=== PATIENT | male | born 1990 | race Caucasian/White ===

== ENCOUNTER 2017-08-15 13:35 | Inpatient (IN) | payer OTHER ==
[2017-08-15 13:44] VITALS: BMI 32.8
[2017-08-15] MEDS ORDERED: morphine CARPU-JECT 4 MG/1 ML DISP.SYRIN IVPUSH ONE ×2 (13:51→16:38)
[2017-08-15] MEDS ORDERED: SODIUM CHLORIDE 1,000 ML IV STA ×2 (13:51→17:52)
[2017-08-15] MEDS ORDERED: ONDANSETRON 4 MG/2 ML VIAL IVPB ONE (13:51)
[2017-08-15] MEDS ORDERED: ONDANSETRON 4 MG/2 ML VIAL ONE (13:54)
[2017-08-15] MEDS ORDERED: morphine CARPU-JECT 4 MG/1 ML DISP.SYRIN ONE ×2 (13:54→16:38)
--- NOTE | 2017-08-15 14:12 | PDOC ---
History of Present Illness - General Chief Complaint: Pain Stated Complaint: ABDOMINAL PAIN Time Seen by Provider: 08/15/17 13:39 - History of Present Illness Initial Comments: 08/15/17 14:08 27 M with h/o testicular torsion presents with 1 day of RLQ pain. Pt states that the pain began in the umbilical region before migrating to his RLQ. He denies F/C. Denies N/V. Denies diarrhea/constipation. Denies scrotal pain. He does not recall what side his torsion was on. Pt has no other surgical history. Past History - Past Medical History Allergies/Adverse Reactions: Allergies Allergy/AdvReac Type Severity Reaction Status Date / Time No Known Allergies Allergy Verified 08/15/17 13:38 Home Medications: Ambulatory Orders NK [No Known Home Medication] 08/15/17 - Suicide/Smoking/Psychosocial Hx Smoking History: Never smoked Hx Alcohol Use: No Drug/Substance Use Hx: No Substance Use Type: None Review of Systems - Review of Systems Comments:: 08/15/17 14:09 "GENERAL/CONSTITUTIONAL: No fever or chills. No weakness. HEAD, EYES, EARS, NOSE AND THROAT: No change in vision. No ear pain or discharge. No sore throat. CARDIOVASCULAR: No chest pain or shortness of breath. RESPIRATORY: No cough, wheezing, or hemoptysis. GASTROINTESTINAL: +abdominal pain GENITOURINARY: No dysuria, frequency, or change in urination. MUSCULOSKELETAL: No joint or muscle swelling or pain. No neck or back pain. SKIN: No rash NEUROLOGIC: No headache, vertigo, loss of consciousness, or change in strength/ sensation. ENDOCRINE: No increased thirst. No abnormal weight change. HEMATOLOGIC/LYMPHATIC: No anemia, easy bleeding, or history of blood clots. ALLERGIC/IMMUNOLOGIC: No hives or skin allergy. " *Physical Exam - Vital Signs Last Vital Signs Temp Pulse Resp BP Pulse Ox 99.0 F 88 15 132/84 98 08/15/17 13:38 08/15/17 13:38 08/15/17 13:38 08/15/17 13:38 08/15/17 13:38 - Physical Exam Comments: 08/15/17 14:10 "GENERAL: Awake, alert, and fully oriented, in no acute distress HEAD: No signs of trauma EYES: PERRLA, EOMI, sclera anicteric, conjunctiva clear ENT: Auricles normal inspection, hearing grossly normal, nares patent, oropharynx clear without exudates. Moist mucosa NECK: Nontender, no stepoffs, Normal ROM, supple, no lymphadenopathy, JVD, or masses LUNGS: Breath sounds equal, clear to auscultation bilaterally. No wheezes, and no crackles HEART: Regular rate and rhythm, normal S1 and S2, no murmurs, rubs or gallops ABDOMEN: + RLQ tenderness, with guarding, no rebound. Negative Rovsing's : Normal scrotal lay, normal cremasteric reflex, no tenderness, no masses EXTREMITIES: Normal range of motion, no edema. No clubbing or cyanosis. No cords, erythema, or tenderness NEUROLOGICAL: Cranial nerves II through XII intact. 5/5 strength and sensation in all extremities, Normal speech, normal gait SKIN: Warm, Dry, normal turgor, no rashes or lesions noted. " ED Treatment Course - LABORATORY CBC & Chemistry Diagram: 08/15/17 14:00 08/15/17 14:00 - RADIOLOGY Radiology Studies Ordered: Category Date Time Status ABDOMEN & PELVIS CT WITH CONTR [CT] Stat CT Scan 08/15/17 13:50 Ordered SCROTUM AND CONTENTS US [US] Stat Ultrasound 08/15/17 13:51 Ordered Medical Decision Making - Medical Decision Making 08/15/17 14:11 27 M with 1 day of RLQ pain. Concerning for acute appy. Will also r/o testicular torsion given h/o torsion. However, exam unconcerning for this. - Labs, UA - CTAP - Scrotal US 08/15/17 17:20 Imaging [employer] report shows acute appendicitis without abscess, cannot r/o perf. Unasyn 3gm IV ordered. Page sent out to on-call surgeon. 08/15/17 17:[address] Nails, surgeon drug abuse resistance education officer, who will review images and call back. 08/15/17 17:51 Dr. Nails has accepted pt as satellite admission. Pt to be transferred to [facility]. *DC/Admit/Observation/Transfer Diagnosis at time of Disposition: Acute appendicitis - Discharge Dispostion Condition at time of disposition: Good Admit: Yes - Attestations Physician Attestion: 08/15/17 17:54 I, Dr. Hill Gibbs MD, attest that this document has been prepared under my direction and personally reviewed by me in its entirety. I further attest, that it accurately reflects all work, treatment, procedures and medical decision -making performed by me.
[2017-08-15 14:23] LABS: PH,URINE 7.5 (4.5-8); URINE APPEARANCE Clear; URINE BILIRUBIN Negative (NEGATIVE); URINE BLOOD Negative (NEGATIVE); URINE COLOR YELLOW; URINE GLUCOSE (UA) Negative (NEGATIVE); URINE KETONE Negative (NEGATIVE); URINE LEUK ESTERASE Negative (NEGATIVE); URINE NITRITE Negative (NEGATIVE); URINE PROTEIN Negative (NEGATIVE); URINE UROBILINOGEN 0.2 (0.2-1.0)
[2017-08-15 14:25] LABS: BASOPHIL 1.8 % (0-2.0); EOSINOPHIL 0.6 % (0-4.5); MCH 28.9 pg (25.7-33.7); MCHC 34.4 g/dl (32.0-35.9); MEAN CELL VOLUME 83.8 fl (80-96); MEAN PLT VOLUME 7.3 fl (7.5-11.1); NEUTROPHILS 70.9 % (42.8-82.8); PLATELET COUNT 224 K/MM3 (134-434); RDW 12.4 % (11.9-15.9); WHITE BLOOD COUNT 8.6 K/mm3 (4.0-10.8)
[2017-08-15 14:43] LABS: ACTIVATED PTT 30.3 SECONDS (24.0-38.9)
[2017-08-15 14:45] LABS: ALBUMIN 4.5 g/dl (3.5-5.0); ALK PHOS 106 U/L (32-92); ANION GAP 10 (8-16); BILIRUBIN,TOTAL 1.3 mg/dl (0.2-1.0); CALCIUM 9.8 mg/dl (8.4-10.2); CO2 28 mmol/L (22-28); GLUCOSE,RANDOM 86 mg/dl (74-106); SGOT/AST 32 U/L (10-42); SGPT/ALT 32 U/L (10-40)
[2017-08-15 14:48] LABS: INR 1.09 (0.82-1.09); PROTHROMBIN TIME (PATIENT) 12.2 SEC (10.2-13.0)
[2017-08-15] MEDS ORDERED: AMPICILLIN NA/SULBACTAM NA 3 GM in SODIUM CHLORIDE 100 ML IVPB ONE (17:30)
[2017-08-15] MEDS ORDERED: AMPICILLIN NA/SULBACTAM NA 3 GM VIAL ONE (17:33)
[2017-08-15] MEDS ORDERED: SODIUM CHLORIDE 1,000 ML IV SCH (18:00)
[2017-08-15] MEDS ORDERED: LACTATED RINGERS SOLUTION 1,000 ML IV SCH ×2 (20:30→21:00)
--- NOTE | 2017-08-15 20:33 | HP ---
Admitting History and Physical - Primary Care Physician PCP: Nichole Nobles - Admission Chief Complaint: RLQ pain History of Present Illness: 27yo healthy M with h/o operation at 13 for testicular torsion, has been experiencing vague abdominal discomfort for a couple of weeks. Saw his PMD a week ago , who checked his urine, but did not find infection, and advised followup with his urologist, scheduled for next week. A week ago Wednesday, he then had chills and a brief fever, with a loose stool, which resolved on its own. He has not had much of an appetite for over a week. Did not have kev abdominal pain, though yesterday at work (3p - 2am), he felt gassy and had only bread to eat at 11pm. Had not been hungry for lunch, though did have a sandwich before work. After getting home, he began having lower/ central abdominal pain around 3:30 am and had trouble sleeping because he could not lay on his side. Tried some chewable Pepto-Bismol, but it did not help. Slept from about 5-9am, but had RLQ pain when he got up. Had a mushy stool this morning but no kev diarrhea, no n/v, no f/c. Came to ER around 1pm. Last po was some water just before. In ER, he had temp 99 and 99.7, wbc 8.6, couple of LFTs slightly up and H/H 16.7 /48.5, UA negative. CT showed enlarged appendix to almost 2cm, with surrounding inflammation of cecum and terminal ileum, perforation not excluded but no kev abscess. He was given fluids and Unasyn and surgery called. He has been sent to [facility] from [place] for OR, as surgery is not available there on weekends. He also had an US which r/o testicular torsion. He states his pain is about the same as when he came. He is not hungry. 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, uses excedrin prn) Pulmonary: Yes: Asthma (as child - no inhaler use for many years) Renal/: Yes: Other (h/o testicular torsion at 13) ENT: Yes: Other (deviated septum s/p surgery) - Past Surgical History Additional Past Surgical History: LASIK, nasal surgery for deviated septum, orchiopexy/detorsion at age 13 (not sure of side) - Smoking History Smoking history: Never smoked Have you smoked in the past 12 months: No - Alcohol/Substance Use Hx Alcohol Use: No History of Substance Use: reports: None - Social History ADL: Independent 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[employer], 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 Home Medications - Allergies Allergies/Adverse Reactions: Allergies Allergy/AdvReac Type Severity Reaction Status Date / Time No Known Allergies Allergy Verified 08/15/17 13:38 - Home Medications Home Medications: Ambulatory Orders NK [No Known Home Medication] 08/15/17 Home Medications (free text): excedrin prn for migraines, last use last week Family Disease History - Family Disease History Family History: Unremarkable Review of Systems - Review of Systems Constitutional: reports: Chills (had on Sat 08/07 but went away), Fever (briefly Sat 08/07, not since), Loss of Appetite Eyes: denies: Blurred Vision, Recent Change in Vision HENT: denies: Difficult Swallowing, Hearing Loss, Nasal Congestion, Throat Pain Neck: denies: Swollen Glands, Tenderness Cardiovascular: reports: Chest Pain (gets rare to occasional sharp pain at sternum, lasting seconds, goes away on its own). denies: Palpitations Respiratory: denies: Cough, SOB, Wheezing Gastrointestinal: reports: Abdominal Pain (with hpi). denies: Constipation, Diarrhea (had a loose stool a week ago), Nausea, Vomiting Genitourinary: denies: Burning, Dysuria, Hematuria, Testicular Swelling Musculoskeletal: denies: Back Pain, Joint Pain, Muscle Pain Integumentary: denies: Change in Color, Rash Neurological: reports: Headache (last migraine was Wednesday, took excedrin). denies: Dizziness Psychiatric: denies: Anxiety, Depression Pain Intensity: 7 Physical Examination Vital Signs: Vital Signs Temperature 99.7 F H 08/15/17 19:10 Pulse Rate 104 H 08/15/17 19:10 Respiratory Rate 14 08/15/17 19:10 Blood Pressure 127/88 08/15/17 19:10 O2 Sat by Pulse Oximetry (%) 94 L 08/15/17 17:42 Vital Signs Period Temp Pulse Resp BP Sys/Garcia Pulse Ox Last 24 Hr 99.0 F-99.7 F 88-105 14-15 127-132/84-90 94-98 temp 98.7 here Constitutional: Yes: Well Nourished, Calm, Mild Distress (secondary to pain) Eyes: Yes: Conjunctiva Clear, EOM Intact HENT: Yes: Atraumatic, Normocephalic Neck: Yes: Supple, Trachea Midline Cardiovascular: Yes: Tachycardia. No: Pulse Irregular Respiratory: Yes: Regular, CTA Bilaterally. No: Wheezes Gastrointestinal: Yes: Normal Bowel Sounds, Soft, Hypoactive Bowel Sounds (in RLQ), Tenderness (RLQ worst at McBurney's point, slightly less surrounding, with referred tenderness from LLQ, also tend at suprapubic; hurts with movement) , Tenderness, Rebound (focal/RLQ). No: Distention ...Rectal Exam: Yes: Deferred Renal/: No: CVA Tenderness - Left, CVA Tenderness - Right Musculoskeletal: No: Back Pain, Joint Swelling Extremities: No: Cool, Cyanosis Edema: No Peripheral Pulses WNL: Yes Integumentary: No: Jaundice, Rash Neurological: Yes: Alert, Oriented. No: Unsteady Gait Psychiatric: Yes: Alert, Oriented Labs: CBC, BMP 08/15/17 14:00 08/15/17 14:00 CMP Sodium 136 mmol/L (136-145) 08/15/17 14:00 Potassium 3.7 mmol/L (3.5-5.1) 08/15/17 14:00 Chloride 98 mmol/L (98-107) 08/15/17 14:00 Carbon Dioxide 28 mmol/L (22-28) 08/15/17 14:00 Anion Gap 10 (8-16) 08/15/17 14:00 BUN 17 mg/dl (7-18) 08/15/17 14:00 Creatinine 1.0 mg/dl (0.6-1.3) 08/15/17 14:00 Creat Clearance w eGFR > 60 (>60) 08/15/17 14:00 Random Glucose 86 mg/dl (74-106) 08/15/17 14:00 Calcium 9.8 mg/dl (8.4-10.2) 08/15/17 14:00 Total Bilirubin 1.3 mg/dl (0.2-1.0) H 08/15/17 14:00 AST 32 U/L (10-42) 08/15/17 14:00 ALT 32 U/L (10-40) 08/15/17 14:00 Alkaline Phosphatase 106 U/L (32-92) H 08/15/17 14:00 Total Protein 8.0 g/dl (6.4-8.3) 08/15/17 14:00 Albumin 4.5 g/dl (3.5-5.0) 08/15/17 14:00 Urine Test Results Urine Color Yellow 08/15/17 14:00 Urine Appearance Clear 08/15/17 14:00 Urine pH 7.5 (4.5-8) 08/15/17 14:00 Ur Specific [place] 1.020 (1.005-1.025) 08/15/17 14:00 Urine Protein Negative (NEGATIVE) 08/15/17 14:00 Urine Glucose (UA) Negative (NEGATIVE) 08/15/17 14:00 Urine Ketones Negative (NEGATIVE) 08/15/17 14:00 Urine Blood Negative (NEGATIVE) 08/15/17 14:00 Urine Nitrite Negative (NEGATIVE) 08/15/17 14:00 Urine Bilirubin Negative (NEGATIVE) 08/15/17 14:00 Ur Leukocyte Esterase Negative (NEGATIVE) 08/15/17 14:00 dehydrated by labs Imaging - Results Cat Scan: Report Reviewed (very enlarged, tubular appendix, with inflammation extending to cecum and terminal ileum, with adjacent free fluid/phlegmon down into pelvis; DDx: IBD, infectious colitis/terminal ileitis, appendicitis), Image Reviewed Ultrasound: Report Reviewed (no testicular torsion) Problem List - Problems (1) Acute appendicitis with localized peritonitis Assessment/Plan: Given clinical history and exam, this is most likely acute appendicitis with secondary inflammation and localized peritonitis NPO/IVF Pt got Unasyn at [place] ~6pm Discussed with patient risks, benefits and alternatives of laparoscopic possible open appendectomy, including but not limited to bleeding, infection, injury to adjacent structures, leak or injury, intraabdominal abscess, higher risk for open procedure, possible need for drain or more extensive procedure, need for further procedures; alternatives include antibiotics, delayed or no surgery - risks of this include failure of nonoperative therapy, perforation, sepsis, recurrence. Patient desires to proceed with operation - will take to OR for above. Informed consent signed for same. Zosyn preop and after/periop Pain meds prn DVT prophylaxis Patient is expected to stay in hospital at least two midnights. Code(s): K35.3 - ACUTE APPENDICITIS WITH LOCALIZED PERITONITIS (2) Mild dehydration Assessment/Plan: IV hydration - per pt, urine is clear now Code(s): E86.0 - DEHYDRATION (3) Anorexia Code(s): R63.0 - ANOREXIA (4) Obesity (BMI 30.0-34.9) Code(s): E66.9 - OBESITY, UNSPECIFIED
[2017-08-15] MEDS ORDERED: HYDROmorphone HCL CARPU-JECT 1 MG/1 ML DISP.SYRIN IVPUSH PRN (20:49)
[2017-08-15] MEDS ORDERED: MIDAZOLAM HCL 2 MG/2 ML SINGLE DOSE VIAL ONE (21:04)
[2017-08-15] MEDS ORDERED: PROPOFOL 20 ML ONE ×2 (21:08→22:12)
[2017-08-15] MEDS ORDERED: DEXTROSE 5%-WATER 100 ML IVPB ONE (21:11)
[2017-08-15] MEDS ORDERED: PIPERACILLIN/TAZOBACTAM 4.5 GM VIAL IVPB ONE ×2 (21:11→21:30)
[2017-08-15] MEDS ORDERED: PIPERACILLIN/TAZOB 4.5 GM 4.5 GM in DEXTROSE 5%-WATER 100 ML IVPB ONE (21:30)
[2017-08-15] MEDS ORDERED: NEOSTIGMINE METHYLSULFATE 0.5 MG/ML - 10 ML MDV ONE (22:08)
[2017-08-15] MEDS ORDERED: HYDROmorphone HCL/PF 1 MG/ML VIAL (FOR PYXIS CHARGING ONLY) ONE (22:13)
[2017-08-15] MEDS ORDERED: ROCURONIUM BROMIDE 50 MG/5 ML VIAL ONE ×2 (22:18→23:16)
[2017-08-16] MEDS ORDERED: LIDOCAINE HCL 1%, 10 MG/ML (20ML VIAL) ONE (00:27)
[2017-08-16] MEDS ORDERED: BUPIVACAINE HCL/PF 0.5% (5MG/ML) 10 ML VIAL ONE (00:27)
[2017-08-16] MEDS ORDERED: GLYCOPYRROLATE 0.2 MG/1 ML VIAL ONE (01:06)
--- NOTE | 2017-08-16 01:55 | OP ---
Operative Note - Note: Operative Date: 08/15/17 (finished 08/16) Pre-Operative Diagnosis: acute appendicitis with localized peritonitis Operation: laparoscopic appendectomy Findings: very enlarged, bulbous, inflamed appendix with thick, dense peel extending onto cecum; terminal ileum somewhat inflamed; small amount yellow fluid in pelvis Post-Operative Diagnosis: Same as Pre-op Surgeon: Jaleel Nails Anesthesiologist/QUALITY ASSURANCE ENGINEER: Krystina Varma Anesthesia: General, Local (10ml 1% lidocaine + 0.5% marcaine) Specimens Removed: appendix to pathology Estimated Blood Loss (mls): 50 Drains & Tubes with Location: Donis removed at end of case Drains, Volume Out (mls): 350 (UOP) Fluid Volume Replaced (mls): 1,500 (crystalloid) Operative Report Dictated: Yes
[2017-08-16] MEDS ORDERED: oxyCODONE HCL 5 MG TABLET PO PRN (02:00)
[2017-08-16] MEDS ORDERED: morphine CARPU-JECT 4 MG/1 ML DISP.SYRIN IVPUSH PRN (02:02)
[2017-08-16] MEDS ORDERED: ACETAMINOPHEN INJECTION 100 ML IVPB ONE (02:06)
[2017-08-16] MEDS: ACETAMINOPHEN 1000 MG/100 ML VIAL (NON FORMULARY) IVPB ONE ×2 (02:10→03:39)
[2017-08-16] MEDS ORDERED: ONDANSETRON 4 MG/2 ML VIAL ONE (02:12)
[2017-08-16] MEDS ORDERED: morphine CARPU-JECT 2 MG/1 ML DISP.SYRIN IVPUSH PRN (02:14)
[2017-08-16] MEDS: LACTATED RINGERS SOLUTION 1,000 ML IV SCH ×3 (03:00→20:09)
[2017-08-16] MEDS ORDERED: ONDANSETRON 4 MG TABLET PO ONE (05:37)
[2017-08-16] MEDS ORDERED: PIPERACILLIN/TAZOBACTAM 4.5 GM VIAL IVPB ONE (05:39)
[2017-08-16] MEDS ORDERED: PIPERACILLIN/TAZOB 4.5 GM 4.5 GM in DEXTROSE 5%-WATER 100 ML IVPB ONE (06:00)
[2017-08-16] MEDS: ONDANSETRON 4 MG/2 ML VIAL IVPUSH PRN ×4 (06:00→20:06)
[2017-08-16] MEDS ORDERED: PIPERACILLIN/TAZOB 4.5 GM 4.5 GM in DEXTROSE 5%-WATER - 100 ML IVPB ONE (06:00)
[2017-08-16] MEDS ORDERED: ACETAMINOPHEN 325 MG TABLET (FP) PO PRN (09:00)
--- NOTE | 2017-08-16 09:27 | PN ---
Progress Note (short form) - Note Progress Note: Post op day#1.S/P Laproscopic appendectomy under GA uneventful.Patient stable.No any anesthesia related problem.Patient DC from the anesthesia care.
[2017-08-16] MEDS: oxyCODONE HCL 5 MG TABLET PO PRN ×2 (10:46→19:56)
[2017-08-16] MEDS ORDERED: HYDROmorphone HCL CARPU-JECT 1 MG/1 ML DISP.SYRIN IVPB PRN (11:56)
--- NOTE | 2017-08-16 12:09 | PN ---
Progress Note, Physician Chief Complaint: RLQ pain History of Present Illness: s/p laparoscopic appendectomy overnight pt seen and examined in bed had some nausea after arriving on floor, improved with zofran tried a few clears for breakfast, not much appetite yet had pain med about an hour ago, has RLQ pain but not as much as yesterday pt states it hurts when he gets up to walk or to bathroom using IS - can get ~1750 with good effort no flatus or BM yet, has voided - Current Medication List Current Medications: Active Medications Acetaminophen (Tylenol -) 650 mg PO Q6H PRN PRN Reason: FEVER OR PAIN Lactated Ringer's (Lactated Ringers Solution) 1,000 mls @ 125 mls/hr IV ASDIR JOHN Last Admin: 08/16/17 10:50 Dose: 125 mls/hr Ondansetron HCl (Zofran Injection) 4 mg IVPUSH Q4H PRN PRN Reason: NAUSEA AND/OR VOMITING Last Admin: 08/16/17 10:48 Dose: 4 mg Oxycodone HCl (Roxicodone -) 5 mg PO Q4H PRN PRN Reason: PAIN Last Admin: 08/16/17 10:46 Dose: 5 mg - Objective Vital Signs: Vital Signs Temperature 97.5 F L 08/16/17 09:48 Pulse Rate 87 08/16/17 09:48 Respiratory Rate 20 08/16/17 09:48 Blood Pressure 131/75 08/16/17 09:48 O2 Sat by Pulse Oximetry (%) 92 L 08/16/17 09:07 Vital Signs Period Temp Pulse Resp BP Sys/Garcia Pulse Ox Last 24 Hr 97.5 F-99.7 F 87-105 10-20 119-144/75-90 92-99 Intake & Output 08/15/17 08/16/17 08/16/17 23:59 07:59 15:59 Intake Total 2500 600 Output Total 400 Balance 2100 600 Intake: IV 2500 500 Lactated Ringers Solution 1000 1,000 ml @ 125 mls/hr IV ASDIR JOHN Rx#: [id number] Lactated Ringers Solution 500 1,000 ml @ 125 mls/hr IV ASDIR JOHN Rx#: [id number] IVPB 100 Output: Urine 350 Estimated Blood Loss 50 Other: Voiding Method Toilet Urinal Constitutional: Yes: Well Nourished, No Distress, Calm Eyes: Yes: Conjunctiva Clear, EOM Intact Cardiovascular: Yes: Tachycardia (mild). No: Pulse Irregular Respiratory: Yes: Regular, CTA Bilaterally Gastrointestinal: Yes: Normal Bowel Sounds (left side), Soft, Abdomen, Obese, Distention (mild), Hypoactive Bowel Sounds (right side), Tenderness (RLQ but less than preop, mild incisional at LLQ, no R/G) Extremities: Yes: Other (SCDs in place). No: Cool, Cyanosis Integumentary: Yes: Incision (w/dressings x3). No: Rash Wound/Incision: Yes: Steri Strips (under dressings), Dressing Dry and Intact (x3 ) Neurological: Yes: Alert, Oriented Labs: no new labs Problem List - Problems (1) Acute appendicitis with localized peritonitis Assessment/Plan: s/p lap appy about 12 hrs ago voiding but no bowel function yet no fever postop got oxycodone earlier, will take tylenol as well (morphine not available per nursing, will order dilaudid prn for breakthrough pain) will try more clears for lunch if tolerating, ok for full liquids for dinner will continue IVF until hydrating well by mouth continue antibiotics for appendicitis - ID consulted for Zosyn continue IS and pulm toilet SCDs while in bed encouraged OOB and ambulation as much as possible Code(s): K35.3 - ACUTE APPENDICITIS WITH LOCALIZED PERITONITIS (2) Mild dehydration Assessment/Plan: voiding well improved with IVF essentially resolved Code(s): E86.0 - DEHYDRATION (3) Anorexia Code(s): R63.0 - ANOREXIA (4) Obesity (BMI 30.0-34.9) Code(s): E66.9 - OBESITY, UNSPECIFIED
[2017-08-16] MEDS: DOCUSATE SODIUM 100 MG CAPSULE (FP) PO SCH ×2 (12:40→21:35)
--- NOTE | 2017-08-16 13:12 | CON.ID ---
Consult Consult Specialty:: infectious diseases Reason for Consultation:: appensdicitis - History of Present Illness Chief Complaint: abd pain History of Present Illness: 27yo healthy M with h/o operation at 13 for testicular torsion, has been experiencing vague abdominal discomfort for a couple of weeks. 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, uses excedrin prn) Pulmonary: Yes: Asthma (as child - no inhaler use for many years) Renal/: Yes: Other (h/o testicular torsion at 13) ENT: Yes: Other (deviated septum s/p surgery) - Alcohol/Substance Use Hx Alcohol Use: No History of Substance Use: reports: None - Smoking History Smoking history: Never smoked Have you smoked in the past 12 months: No - Social History ADL: Independent 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[employer], 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 Home Medications - Allergies Allergies/Adverse Reactions: Allergies Allergy/AdvReac Type Severity Reaction Status Date / Time No Known Allergies Allergy Verified 08/15/17 13:38 - Home Medications Home Medications: Ambulatory Orders NK [No Known Home Medication] 08/15/17 Review of Systems - Review of Systems Constitutional: reports: Other Eyes: reports: No Symptoms HENT: reports: No Symptoms Neck: reports: No Symptoms Cardiovascular: reports: No Symptoms Respiratory: reports: No Symptoms Gastrointestinal: reports: Abdominal Pain Genitourinary: reports: No Symptoms Musculoskeletal: reports: No Symptoms Integumentary: reports: No Symptoms Neurological: reports: No Symptoms Endocrine: reports: No Symptoms Hematology/Lymphatic: reports: No Symptoms Psychiatric: reports: No Symptoms Physical Exam Vital Signs: Vital Signs Temperature 97.5 F L 08/16/17 09:48 Pulse Rate 87 08/16/17 09:48 Respiratory Rate 20 08/16/17 09:48 Blood Pressure 131/75 08/16/17 09:48 O2 Sat by Pulse Oximetry (%) 92 L 08/16/17 09:07 Constitutional: Yes: Well Nourished, No Distress, Calm, Obese Eyes: Yes: Conjunctiva Clear Cardiovascular: Yes: Regular Rate and Rhythm Respiratory: Yes: Regular, CTA Bilaterally Gastrointestinal: Yes: Soft, Hypoactive Bowel Sounds, Other (surgical site looks good) Musculoskeletal: Yes: WNL Extremities: Yes: WNL Neurological: Yes: Alert, Oriented Psychiatric: Yes: Alert, Oriented Imaging - Results Cat Scan: Report Reviewed, Image Reviewed Ultrasound: Report Reviewed, Image Reviewed Assessment/Plan Problem List - Problems (1) Acute appendicitis with localized peritonitis. Code(s): K35.3 - ACUTE APPENDICITIS WITH LOCALIZED PERITONITIS (2) Mild dehydration Code(s): E86.0 - DEHYDRATION (3) Anorexia Code(s): R63.0 - ANOREXIA (4) Obesity (BMI 30.0-34.9) Code(s): E66.9 - OBESITY, UNSPECIFIED plan agree wiht zosyn continue zosyn patient slightly tachy watch on the rate
[2017-08-16] MEDS ORDERED: PIPERACILLIN/TAZOBACTAM 3.375 GM VIAL IVPB ONE ×2 (14:10→21:29)
[2017-08-16] MEDS ORDERED: DEXTROSE 5%-WATER - 50 ML IVPB ONE ×2 (14:10→21:29)
[2017-08-16] MEDS: PIPERACILLIN/TAZOB 3.375 GM 3.375 GM in DEXTROSE 5%-WATER - 50 ML IVPB SCH ×3 (14:17→21:35)
[2017-08-16] MEDS: ACETAMINOPHEN 325 MG TABLET (FP) PO PRN (19:56)
[2017-08-17] MEDS: ONDANSETRON 4 MG/2 ML VIAL IVPUSH PRN ×2 (00:52→09:46)
[2017-08-17] MEDS: oxyCODONE HCL 5 MG TABLET PO PRN ×2 (00:52→06:01)
[2017-08-17] MEDS: LACTATED RINGERS SOLUTION 1,000 ML IV SCH ×2 (04:37)
[2017-08-17] MEDS ORDERED: PIPERACILLIN/TAZOBACTAM 3.375 GM VIAL IVPB ONE ×3 (05:38→20:54)
[2017-08-17] MEDS ORDERED: DEXTROSE 5%-WATER - 50 ML IVPB ONE ×3 (05:39→20:54)
[2017-08-17] MEDS: PIPERACILLIN/TAZOB 3.375 GM 3.375 GM in DEXTROSE 5%-WATER - 50 ML IVPB SCH ×3 (05:45→21:19)
[2017-08-17] MEDS: ACETAMINOPHEN 325 MG TABLET (FP) PO PRN ×3 (06:01→18:48)
[2017-08-17] MEDS: DOCUSATE SODIUM 100 MG CAPSULE (FP) PO SCH ×2 (09:41→21:18)
--- NOTE | 2017-08-17 10:26 | PN ---
Progress Note (short form) - Note Progress Note: POD2 s/p difficult laparoscopic appendectomy doing well had percocet this am tolerating full liquids but had some nausea in last hour (not after breakfast), getting zofran has been up ambulating in [place] pain is less Vital Signs Period Temp Pulse Resp BP Sys/Garcia Pulse Ox Last 24 Hr 97.9 F-99.2 F 89-106 18-19 122-131/75-87 92 PE: A&O RRR, slightly tachy CTAB abd soft, mildly distended, incisionally tender only dressings c/d/i x 3 - will remove later today A/P: POD2 s/p lap appy doing well on po pain meds ambulating and voiding advance to regular diet d/c most IV meds and IV fluids continue antibiotics through discharge may d/c home later today vs am Problem List - Problems (1) Acute appendicitis with localized peritonitis Code(s): K35.3 - ACUTE APPENDICITIS WITH LOCALIZED PERITONITIS (2) Mild dehydration Code(s): E86.0 - DEHYDRATION (3) Anorexia Code(s): R63.0 - ANOREXIA (4) Obesity (BMI 30.0-34.9) Code(s): E66.9 - OBESITY, UNSPECIFIED
--- NOTE | 2017-08-17 13:45 | PN ---
Progress Note, Physician History of Present Illness: patient doing well no issues still tachy - Current Medication List Current Medications: Active Medications Acetaminophen (Tylenol -) 650 mg PO Q6H PRN PRN Reason: FEVER OR PAIN Last Admin: 08/17/17 10:48 Dose: 650 mg Docusate Sodium (Colace -) 100 mg PO BID JOHN Last Admin: 08/17/17 09:41 Dose: 100 mg Piperacillin Sod/Tazobactam (Sod 3.375 gm/ Dextrose) 50 mls @ 100 mls/hr IVPB Q8H JOHN PRN Reason: Protocol Last Admin: 08/17/17 13:22 Dose: 100 mls/hr Oxycodone HCl (Roxicodone -) 5 mg PO Q4H PRN PRN Reason: PAIN Last Admin: 08/17/17 06:01 Dose: 5 mg - Objective Vital Signs: Vital Signs Temperature 98 F 08/17/17 08:00 Pulse Rate 96 H 08/17/17 08:00 Respiratory Rate 18 08/17/17 08:00 Blood Pressure 131/87 08/17/17 08:00 O2 Sat by Pulse Oximetry (%) 96 08/17/17 09:00 Constitutional: Yes: No Distress HENT: Yes: Atraumatic Neck: Yes: Supple Cardiovascular: Yes: Regular Rate and Rhythm Respiratory: Yes: Regular, CTA Bilaterally Gastrointestinal: Yes: Normal Bowel Sounds, Soft Neurological: Yes: Alert, Oriented Psychiatric: Yes: Alert, Oriented Labs: INR, PTT INR 1.09 (0.82-1.09) 08/15/17 14:00 Assessment/Plan Problem List - Problems (1) Acute appendicitis with localized peritonitis. Code(s): K35.3 - ACUTE APPENDICITIS WITH LOCALIZED PERITONITIS (2) Mild dehydration Code(s): E86.0 - DEHYDRATION (3) Anorexia Code(s): R63.0 - ANOREXIA (4) Obesity (BMI 30.0-34.9) Code(s): E66.9 - OBESITY, UNSPECIFIED plan continue current abx continue monitoring patient still tachy rest as per primary
[2017-08-17] MEDS ORDERED: PIPERACILLIN/TAZOB 3.375 GM 3.375 GM in DEXTROSE 5%-WATER - 50 ML IVPB SCH (22:15)
[2017-08-18] MEDS ORDERED: PIPERACILLIN/TAZOBACTAM 3.375 GM VIAL IVPB ONE ×2 (05:34→13:59)
[2017-08-18] MEDS ORDERED: DEXTROSE 5%-WATER - 50 ML IVPB ONE ×2 (05:35→13:59)
[2017-08-18] MEDS: PIPERACILLIN/TAZOB 3.375 GM 3.375 GM in DEXTROSE 5%-WATER - 50 ML IVPB SCH ×2 (05:51→14:16)
[2017-08-18 07:17] LABS: BASOPHIL 0.4 % (0-2.0); EOSINOPHIL 1.7 % (0-4.5); MCH 28.4 pg (25.7-33.7); MCHC 34.1 g/dl (32.0-35.9); MEAN CELL VOLUME 83.2 fl (80-96); NEUTROPHILS 64.9 % (42.8-82.8); PLATELET COUNT 163 K/MM3 (134-434); RDW 13.4 % (11.9-15.9); WHITE BLOOD COUNT 5.4 K/mm3 (4.0-10.0)
[2017-08-18] MEDS: DOCUSATE SODIUM 100 MG CAPSULE (FP) PO SCH (09:45)
--- NOTE | 2017-08-18 10:23 | PATH ---
Surgical Pathology Report Patient Name: VINI CEDEÑO Med. Rec. #: [id number] /Age/Gender: 1990 (Age: 27) / M Account: [id number] Location: [address] [place] [address]/[facility] Taken: 08/15/2017 Received: 08/16/2017 Reported: 08/18/2017 Physicians: Jaleel Nails M.D. Specimen(s) Received APPENDIX Clinical History Appendicitis Final Diagnosis APPENDIX, APPENDECTOMY: APPENDIX WITH MARKED TRANSMURAL CHRONIC INFLAMMATION WITH LOOSE GRANULOMA FORMATION. ADDITIONAL AREAS OF ACUTE INFLAMMATION OF MUCOSA PRESENT. NO NEOPLASM IS IDENTIFIED. Comment: The histologic findings are morphologically suggestive of Crohn's disease. Recommend correlation with clinical findings and followup is clinically indicated. This case was discussed with Dr. Nails on August 18, 2017. An additional portion of tissue representing the proximal portion of the appendix is present in the specimen container. Flight Test Supervisor sections of this portion of tissue have been submitted in cassette 4, and a report will follow. Electronically Signed Alejandro Jiménez M.D. Addendum Reported: 08/20/2017 Addendum Diagnosis A section from the additional portion of appendix received within the specimen container shows similar histologic findings of acute and chronic inflammation with associated granuloma formation. The mucosa and wall are inflamed but appear viable. Alejandro Jiménez M.D. Gross Description Received in formalin, labeled "appendix," is an 8.5 cm. in length vermiform appendix with a stapled margin of resection and abundant attached fat. The serosa is [place] with a focal defect and attached exudate. Sectioning reveals a hemorrhagic lumen. The soft tissue surrounding the appendix appears edematous. The wall of the appendix averages 0.3 cm. in thickness. Flight Test Supervisor sections are submitted in 3 cassettes as follows: 6-0-cxcyqobw distal tip of appendix; 3-cross sections of appendix. DL/08/16/2017 saudi08/16/2017
--- NOTE | 2017-08-18 12:11 | CON.GI ---
Consult Consult Specialty:: Gastroenterology Referred by:: Dr Dwayne Nails Reason for Consultation:: Crohn's Disease on appendix pathology - History of Present Illness Chief Complaint: Abrupt onset abdominal pain @3AM on 08/15. History of Present Illness: 27M awoke with umbilical pain @3AM on 08/15 which later became more severe and moved to the [facility]. He had a week of diminished appetite but no diarrhea, fevers, abdominal pain. He did develop urgency to urinate about 2 weeks ago and was found to have WBCs in his urine at [facility] where his PMD Dr Nobles is based. No known FH of IBD. His father had colon polyps removed. No recent weight loss, joint pain or rashes. 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 Aric MCKENNA of brain cancer Review of Systems - Review of Systems Constitutional: reports: Loss of Appetite Eyes: reports: No Symptoms HENT: reports: No Symptoms Neck: reports: No Symptoms Cardiovascular: reports: No Symptoms Respiratory: reports: No Symptoms Gastrointestinal: reports: Abdominal Pain Genitourinary: reports: Frequency Musculoskeletal: reports: No Symptoms Integumentary: reports: No Symptoms Neurological: reports: No Symptoms Endocrine: reports: No Symptoms Hematology/Lymphatic: reports: No Symptoms Psychiatric: reports: No Symptoms Physical Exam-GI Vital Signs: Vital Signs Temperature 98.0 F 08/18/17 06:01 Pulse Rate 90 08/18/17 06:01 Respiratory Rate 20 08/18/17 06:01 Blood Pressure 127/72 08/18/17 06:01 O2 Sat by Pulse Oximetry (%) 98 08/17/17 20:31 CBC,CMP WBC 5.4 K/mm3 (4.0-10.0) 08/18/17 06:20 RBC 4.66 M/mm3 (4.00-5.60) 08/18/17 06:20 Hgb 13.2 GM/dL (11.7-16.9) 08/18/17 06:20 Hct 38.8 % (35.4-49) 08/18/17 06:20 MCV 83.2 fl (80-96) 08/18/17 06:20 MCH 28.4 pg (25.7-33.7) 08/18/17 06:20 MCHC 34.1 g/dl (32.0-35.9) 08/18/17 06:20 RDW 13.4 % (11.9-15.9) 08/18/17 06:20 Plt Count 163 K/MM3 (134-434) 08/18/17 06:20 MPV 7.0 fl (7.5-11.1) L 08/18/17 06:20 Neutrophils % 64.9 % (42.8-82.8) 08/18/17 06:20 Lymphocytes % 20.2 % (8-40) 08/18/17 06:20 Monocytes % 12.8 % (3.8-10.2) H 08/18/17 06:20 Eosinophils % 1.7 % (0-4.5) 08/18/17 06:20 Basophils % 0.4 % (0-2.0) 08/18/17 06:20 Sodium 136 mmol/L (136-145) 08/15/17 14:00 Potassium 3.7 mmol/L (3.5-5.1) 08/15/17 14:00 Chloride 98 mmol/L (98-107) 08/15/17 14:00 Carbon Dioxide 28 mmol/L (22-28) 08/15/17 14:00 Anion Gap 10 (8-16) 08/15/17 14:00 BUN 17 mg/dl (7-18) 08/15/17 14:00 Creatinine 1.0 mg/dl (0.6-1.3) 08/15/17 14:00 Creat Clearance w eGFR > 60 (>60) 08/15/17 14:00 Random Glucose 86 mg/dl (74-106) 08/15/17 14:00 Calcium 9.8 mg/dl (8.4-10.2) 08/15/17 14:00 Total Bilirubin 1.3 mg/dl (0.2-1.0) H 08/15/17 14:00 AST 32 U/L (10-42) 08/15/17 14:00 ALT 32 U/L (10-40) 08/15/17 14:00 Alkaline Phosphatase 106 U/L (32-92) H 08/15/17 14:00 Total Protein 8.0 g/dl (6.4-8.3) 08/15/17 14:00 Albumin 4.5 g/dl (3.5-5.0) 08/15/17 14:00 Current Medications Generic Name Dose Route Start Last Admin Trade Name Magnolia PRN Reason Stop Dose Admin Acetaminophen 650 mg 08/16/17 05:41 08/17/17 18:48 Tylenol - PO 650 mg Q6H PRN Administration FEVER OR PAIN Docusate Sodium 100 mg 08/16/17 12:00 08/18/17 09:45 Colace - PO 100 mg BID JOHN Administration Piperacillin Sod/Tazobactam 50 mls @ 100 mls/hr 08/16/17 22:15 08/18/17 05:51 Sod 3.375 gm/ Dextrose IVPB 100 mls/hr Q8H JOHN Administration Protocol Mesalamine 800 mg 08/18/17 14:00 Asacol Hd - PO TID JOHN Oxycodone HCl 5 mg 08/16/17 02:14 08/17/17 06:01 Roxicodone - PO 5 mg Q4H PRN Administration PAIN Constitutional: Yes: Calm Eyes: Yes: Conjunctiva Clear HENT: Yes: Normocephalic Neck: Yes: Supple Cardiovascular: Yes: Regular Rate and Rhythm Respiratory: Yes: CTA Bilaterally Gastrointestinal Inspection: Yes: Scars (healing laparoscopic inicisons, neema- incisional pain) ...Palpate: Yes: Soft ...Rectal Exam: Yes: Guaiac Negative, Other (normal testicles, no hernias) Musculoskeletal: Yes: WNL Extremities: Yes: WNL Edema: No Peripheral Pulses WNL: Yes Integumentary: Yes: WNL Wound/Incision: Yes: Clean/Dry, Steri Strips Neurological: Yes: Alert, Oriented Psychiatric: Yes: Alert, Oriented Labs: CBC, BMP 08/18/17 06:20 INR, PTT INR 1.09 (0.82-1.09) 08/15/17 14:00 Laboratory Tests 08/15/17 08/15/17 08/18/17 14:00 14:00 06:20 WBC 8.6 5.4 Hgb 16.7 13.2 Total Bilirubin 1.3 H AST 32 ALT 32 Alkaline Phosphatase 106 H Albumin 4.5 Imaging - Results Cat Scan: Report Reviewed ([facility] Name: VINI CEDEÑO DEPARTMENT OF RADIOLOGY Phys: Rene Holder MD : 1990 Age: 27 Sex: M [facility] Acct: [id number] Loc: [address] Exam Date: 08/15/17 Status: REG [place] [id number] Unit Number: [id number] EXAM#: TYPE/EXAM: RESULT: [id number] CT/ABDOMEN PELVIS CT WITH CONTR Examination: CT abdomen and pelvis with IV contrast Indication: Right lower quadrant abdominal pain. Technique: Contiguous axial CT images of the abdomen and pelvis were obtained with oral contrast, following the intravenous administration of 100 mL of Omnipaque 350 contrast. Coronal and sagittal reconstructions obtained. Comparison: None. Findings: The visualized lung bases are essentially clear. The heart is not enlarged. Normal liver size and contour, with hepatic steatosis. Gallbladder is not pathologically distended. No intrahepatic or extrahepatic biliary ductal dilatation. Pancreas and spleen are unremarkable. No adrenal gland mass. Kidneys are normal in size with symmetric enhancement. No hydronephrosis. Normal caliber abdominal aorta. No pathologically enlarged retroperitoneal lymph nodes by size criteria. There is long segment of marked circumferential wall thickening centered in the cecum, which extends into the ascending colon and terminal ileum. Extensive inflammatory changes are also present throughout the entire appendix, which is markedly thickened, measuring up to 2 cm in diameter with significant wall thickening. There is extensive fat stranding surrounding these loops of bowel with confluent free fluid/phlegmon, tracking into the pelvis. There is no calcified appendicolith at the base of the appendix. There is no free intraperitoneal air. No drainable collection. There are numerous, enlarged reactive right lower quadrant mesenteric lymph nodes. Urinary bladder is unremarkable. Prostate gland is not enlarged. No pathologically enlarged pelvic sidewall lymph nodes by size criteria. No acute fracture in the visualized osseous structures. Impression: Marked circumferential wall thickening centered at the base of the cecum extending into the ascending colon, terminal ileum and involving the entire appendix with extensive surrounding fat stranding and fluid/phlegmon, tracking into the pelvis, as described above. The constellation of findings may be secondary to active inflammatory bowel disease or infectious colitis/terminal ileitis. Please correlate clinically for inflammatory bowel disease (e.g. Crohn's) . A primary acute appendicitis with secondary inflammation of the cecum and terminal ileum is felt to be less likely, but cannot be entirely excluded. No appendicolith identified. Surgical consultation is suggested. This case was discussed with Dr. Holder at 5:20 PM on 08/15/2017. Reported By: Brennen Pro MD 08/15/171748 RENE HOLDER Technologist: Juan Miranda Transcribed Date/Time: 08/15/171748 Senior Test Engineer: Brennen Pro MD Printed Date/Time: [ rep prt dt last] [ rep prt tm last] By: [ rep prt user last] Signed by: Brennen Pro Signed on: 15-Aug-2017 17:51) Assessment/Plan The appendiceal pathology confirms the CT findings that are best explained by Crohn's Disease. Impingement by the terminal ileum on the bladder would also explain his urinary frequency. I have discussed Crohn's Disease in detail with Vini and the need for lifelong therapy and followup with a program director scouting. I will order an ASCA and other labs and start Asacol 800mg TID. I have provided him with my office phone number but he may chose to see a GI within the [facility] system where his PMD practices. I encouraged him to seek data with the [employer] website. He is at risk for leak and/or fistula formation at his appendectomy site. The case was discussed with Dr Nails earlier when she asked me to see
--- NOTE | 2017-08-18 13:50 | PN ---
Progress Note, Physician History of Present Illness: patient doing well no issues still tachy - Current Medication List Current Medications: Active Medications Acetaminophen (Tylenol -) 650 mg PO Q6H PRN PRN Reason: FEVER OR PAIN Last Admin: 08/17/17 18:48 Dose: 650 mg Docusate Sodium (Colace -) 100 mg PO BID JOHN Last Admin: 08/18/17 09:45 Dose: 100 mg Piperacillin Sod/Tazobactam (Sod 3.375 gm/ Dextrose) 50 mls @ 100 mls/hr IVPB Q8H JOHN PRN Reason: Protocol Last Admin: 08/18/17 05:51 Dose: 100 mls/hr Mesalamine (Asacol Hd -) 800 mg PO TID JOHN Oxycodone HCl (Roxicodone -) 5 mg PO Q4H PRN PRN Reason: PAIN Last Admin: 08/17/17 06:01 Dose: 5 mg - Objective Vital Signs: Vital Signs Temperature 98.0 F 08/18/17 06:01 Pulse Rate 90 08/18/17 06:01 Respiratory Rate 20 08/18/17 06:01 Blood Pressure 127/72 08/18/17 06:01 O2 Sat by Pulse Oximetry (%) 98 08/17/17 20:31 Constitutional: Yes: No Distress, Calm Respiratory: Yes: Regular, CTA Bilaterally Gastrointestinal: Yes: Normal Bowel Sounds, Soft Musculoskeletal: Yes: WNL Extremities: Yes: WNL Neurological: Yes: Alert, Oriented Psychiatric: Yes: Alert, Oriented Labs: CBC, BMP 08/18/17 06:20 INR, PTT INR 1.09 (0.82-1.09) 08/15/17 14:00 Assessment/Plan Problem List - Problems (1) Acute appendicitis with localized peritonitis. Code(s): K35.3 - ACUTE APPENDICITIS WITH LOCALIZED PERITONITIS (2) Mild dehydration Code(s): E86.0 - DEHYDRATION (3) Anorexia Code(s): R63.0 - ANOREXIA (4) Obesity (BMI 30.0-34.9) Code(s): E66.9 - OBESITY, UNSPECIFIED crohns disease plan patient can be transitioned to oral augmentin when he is going home for another 6 days gi note noted crohns
[2017-08-18] MEDS ORDERED: MESALAMINE 800 MG TABLET.DR PO SCH (14:00)
[2017-08-18 14:16] VITALS: BP 132/75; PULSE 93; TEMP 98.1
--- NOTE | 2017-08-18 15:26 | DS ---
Physical Examination Vital Signs: Vital Signs Temperature 98.1 F 08/18/17 14:00 Pulse Rate 93 H 08/18/17 14:00 Respiratory Rate 18 08/18/17 14:00 Blood Pressure 132/75 08/18/17 14:00 O2 Sat by Pulse Oximetry (%) 98 08/17/17 20:31 Constitutional: Yes: Well Nourished, No Distress, Calm Eyes: Yes: Conjunctiva Clear, EOM Intact Cardiovascular: Yes: Tachycardia (slight). No: Pulse Irregular Respiratory: Yes: Regular, CTA Bilaterally Gastrointestinal: Yes: Normal Bowel Sounds, Soft, Abdomen, Obese, Distention ( minimal), Tenderness (minimal incisional) Extremities: No: Cool, Cyanosis Edema: No Integumentary: Yes: Incision (x3). No: Rash Wound/Incision: Yes: Well Approximated, Steri Strips (c/d/i), Open to air (steri 's left SHINE), Dressing Removed (x3) Neurological: Yes: Alert, Oriented. No: Unsteady Gait Labs: CBC, BMP 08/18/17 06:20 Discharge Summary Reason For Visit: APPENDICITIS Current Active Problems Acute appendicitis with localized peritonitis (Acute) Anorexia (Acute) Mild dehydration (Acute) Obesity (BMI 30.0-34.9) (Acute) Crohn's disease Procedures: Principal: laparoscopic appendectomy Hospital Course: 27yo M with h/o testicular torsion presented to [facility] ER with RLQ pain for 1 day , after 1 week anorexia and some urinary frequency prior. He had had one episode of chills and diarrhea a week prior to presentation, and 1 mushy stool that morning, but no other significant symptoms. WBC was 8.6, he was afebrile but slightly tachy, and CT showed very dilated appendix with inflammation extending onto cecum and to TI. He was transferred to [facility] for OR, taken for difficult laparoscopic appendectomy, which showed enlarged/bulbous appendix with thick inflammatory peel with cecal inflammation but not as much at TI. Pathology was significant for likely Crohn's disease in appendix. GI was consulted, and is checking labs and started pt on Asacol. Antibiotics were continued perioperatively, and he will be discharged on another week of Augmentin. Postop, he has tolerated diet, is ambulating and voiding, and pain is now controlled with nonnarcotic oral meds. Incisions with steristrips are c/d /i with minimal tenderness. He has started having loose bowel movements. He is d /c home with lifting restrictions, to follow up with surgery, GI and his PMD within a couple of weeks. Condition: Improved - Instructions Diet, Activity, Other Instructions: Postoperative instructions: You had a laparoscopic appendectomy on 08/15/[address] Jaleel Nails of [facility]. Activity: Resume your usual activities gradually, but no heavy exertion or lifting more than 10-15 pounds for 1 month. Remove dressings 48 hours after surgery; sticky tapes underneath will fall off by themselves. You may shower daily starting then, just pat the incision areas dry. No bath or swimming until the skin incisions have healed. Eat lightly at first, but advance to your usual diet as tolerated. Pain: For pain, you may use and alternate Tylenol (acetaminophen) and/or ibuprofen every 6 hours each as needed; this means that you can take one OR the other at 3-hour intervals. Do not take more than 4000mg of acetaminophen in a day. Take medications as prescribed or indicated on the labeling. Take all your antibiotics as prescribed. Follow-up: Call Dr. Nails's office at [phone] to make your postop appointment (Wednesday ~2 weeks after surgery). Clinic is held in the [facility] on the first floor of [facility]. Call the office if you have: * increasing pain not responsive to pain medication * fever of 101F or higher * vomiting * unusual or increasing bleeding or drainage from wounds * increasing redness or swelling at wound sites * inability to urinate You were found to have Crohn's disease in your appendix. You were seen by Dr. Annalise Bowman of Gastroenterology. Take your new medicine (Asacol) as directed, and follow up with him or another GI doctor very soon as directed. Also, see your primary medical doctor within 1-2 weeks. Referrals: Nichole Nobles [Primary Care Provider] - Annalise Bowman MD [Staff Physician] - Disposition: HOME - Home Medications Comprehensive Discharge Medication List: Ambulatory Orders Amoxicillin/Potassium Clav [Augmentin 875-125 Tablet] 1 each PO BID #14 tablet 08/18/17 Mesalamine [Asacol Hd -] 800 mg PO TID #90 tablet. 08/18/17 Tylenol as needed for pain, ok to alternate with ibuprofen as needed.
[2017-08-21 00:06] LABS: C-ANCA <1:20 titer (Neg:<1:20); MYELOPEROXIDASE ANTIBODY <9.0 U/mL (0.0-9.0); P-ANCA <1:20 titer (Neg:<1:20); PROTEINASE-3 ANTIBODY <3.5 U/mL (0.0-3.5)
--- NOTE | 2017-08-24 11:36 | OP ---
DATE OF OPERATION: 08/15/2017 PREOPERATIVE DIAGNOSIS: Acute appendicitis with localized peritonitis. POSTOPERATIVE DIAGNOSIS: Acute appendicitis with localized peritonitis. PROCEDURE PERFORMED: Laparoscopic appendectomy. SURGEON: Jaleel Nails MD ANESTHESIA: General endotracheal and local, 10 mL of 1% lidocaine plus 0.5% Marcaine. ESTIMATED BLOOD LOSS: 15 mL. FLUIDS: Crystalloid, 1500 mL. URINE OUTPUT: 350 mL. SPECIMEN: Appendix to Pathology. FINDINGS: A very enlarged, bulbous, inflamed appendix with thick, dense peel extending onto the cecum. The terminal ileum was somewhat inflamed. A small amount of yellow fluid was in the pelvis. DISPOSITION: Stable and extubated to PACU. 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 He had seen his primary care doctor a week ago and was planning followup with his urologist, but just after that he experienced a brief episode of chills and subjective fever with a loose stool which resolved on its own. He has had anorexia for the better part of the week, and although had not yet had a kev abdominal pain began having pain approximately 3:00 a.m. this morning with trouble sleeping, and when he did finally wake up, he had significant right lower quadrant pain associated with one mushy stool, and he came to the emergency room in the early afternoon. In the ER, he had low-grade temperature, white count of 8.6, a negative urinalysis, and appeared mildly dehydrated. A CT scan showed a very enlarged appendix to almost 2 cm with surrounding inflammation of the cecum and terminal ileum, which did not exclude perforation, but showed no kev abscess. He was given fluids and Unasyn at the [facility], Surgery was consulted, and he was sent to [facility] from [facility] for operation as surgery is not available there off hours. Risks, benefits, and alternatives of laparoscopic possible open appendectomy were discussed with the patient including, but not limited to, bleeding, infection, injury to intraabdominal structures, intraabdominal abscess, leak from the appendiceal staple line, or need for further procedures. The patient agrees to operation and informed consent has been signed for the same. OPERATIVE TECHNIQUE: The patient was brought to the operating room and laid supine on the operating table. Sequential compression devices were applied to bilateral lower extremities, 4.5 g of Zosyn were given as preoperative antibiotic as the Unasyn had been at least 3-4 hours prior. After induction and intubation by Anesthesia, a Donis catheter was placed in the patient's bladder, which was removed at the end of the case. The patient's abdomen was clipped of hair, prepped and draped in sterile fashion. A small infraumbilical midline incision was made with the scalpel and carried into subcutaneous tissues with electrocautery until the abdominal wall fascia was identified, scored, and elevated with Romie clamps. The peritoneum was entered bluntly with the tip of a clamp, and a fingertip used to ensure entry into the abdominal cavity and the absence of any underlying adhesions. A stay suture of 0 Vicryl was placed in the fascia in figure-of-8 fashion for later closure, and the Payton trocar introduced directly into the abdominal cavity and secured in place with the balloon. The abdomen was insufflated with carbon dioxide, and a laparoscope inserted to inspect the abdominal cavity. The patient was placed in Trendelenburg position with the right side planed upward. The appendix was readily apparent as a very enlarged, whitish, bulbous structure , and the cecum did also appear somewhat inflamed. The terminal ileum was identified with much less inflammation, and the veil of Treves was also identified where it went onto the cecum. Two 5-mm ports were placed under direct vision in the left lower quadrant and suprapubic areas, and the camera was switched to the left lower quadrant port. Manipulation with bowel graspers and ultimately also with a [place] dissector was undertaken in an attempt to free the appendix, in part at its base , from the sidewall of the abdomen, as well as the veil of Treves and nearby fat. A great deal of dissection around the lateral side near where it was presumed to join the cecum was undertaken, and ultimately planes were identified beneath the very dense, thick peel leading to identification of the tubular appendix inside the dense peel where it curved back towards the cecum itself. A suction autocad detailer tool was also used periodically to both flush with saline and suction clear the field, as all surfaces were quite friable, and there was some oozing of blood. Once I was able to identify the wall of the appendix itself near the base, I was able to create a window near the base of the appendix with the [place] dissector through the peel, enough to be able to manipulate and fire a blue load of an Endo GERBER stapler across the appendix near its base, almost where it joined the cecum. After this had been accomplished, some additional dissection with a [place] dissector was undertaken, to identify clearly the mesoappendix and avoid the terminal ileum and veil of Treves, at which point , an additional white load of the Endo GERBER stapler was introduced and used to transect the mesoappendix. The appendix was placed into an EndoCatch bag and retrieved out the umbilical port site. The Payton trocar and pneumoperitoneum were then reestablished, and the camera reinserted. It appeared that where the blue load of the stapler had been fired, there was a small, rather short portion of the appendiceal base still protruding from the cecum. I was able to grasp this at the staple line with a grasper and manipulate an additional blue load of the Endo GERBER stapler to transect an additional very short portion of the base of the appendix right up to where it joined the cecum itself. This additional piece was then retrieved in the tip of a grasper directly out the umbilical trocar site and included with the specimen to pathology. Staple lines were inspected for hemostasis, which appeared to be complete. The suction autocad detailer was used again to irrigate the field with saline and suction clear of blood and fluid. There was a small bit of yellow fluid originally identified in the pelvis. This was also suctioned out, as well as fluid and blood that had run down to that area. There was no active bleeding noted at the end of the procedure. The omentum was drawn down after the patient was returned to neutral position, and small bowel returned to the area such that the omentum was able to cover the operative site. The 5-mm ports were removed under direct vision at the left lower quadrant and suprapubic areas, and the Payton trocar and cannula were then also removed, and the abdomen exsufflated of carbon dioxide. The stay suture at the umbilical site was tied to close the fascia there. Port sites were irrigated with saline solution, local anesthetic was infiltrated into all 3 sites, and skin was closed with 4-0 Vicryl subcuticular sutures. Benzoin and Steri-Strips were applied over the incisions, and dressings of gauze and Tegaderm were placed over these. The Donis catheter was then removed from the patient's bladder. Counts were correct at the end of the procedure. The patient was then awakened and extubated by Anesthesia. He was returned to a stretcher and taken to the recovery room in stable condition having tolerated the procedure well. Jaleel Nails M.D. [id number] MTDD
== END 2017-08-18 17:01 | disposition home or self-care (01) | DRG 225 ==
LOC: FER 13:35 → JDFREF 19:00 → J6S 19:30 → JDFREF 21:01 → JERBED 21:01 → J6S 23:43
PROVIDERS: ADMIT Surgery; ATTEND Surgery
PROC: 0DTJ4ZZ Resection of Appendix, Percutaneous Endoscopic Approach (ICD-10-PCS; principal; 2017-08-15 21:00)
DX: K35.3 Acute appendicitis with localized peritonitis (principal); E86.0 Dehydration; R63.0 Anorexia; E66.9 Obesity, unspecified; Z68.32 Body mass index [BMI] 32.0-32.9, adult
CPT/HCPCS: 36415; 74177-TC; 76870-TC; 80053; 81003; 82542; 83520; 85025; 85610; 85730; 86140; 86256; 86671; 86850; 86900; 86901; 88304-TC; 94760; 99283-25